=== PATIENT | female | born 1965 | race Caucasian/White ===

== ENCOUNTER 2022-05-06 20:36 | Emergency (ER) | payer SELFPAY ==
[~2022-05-06] VITALS: Ht 152.4 cm; Wt 61.2 kg
[2022-05-06 20:37] VITALS: BP_SYST 134
--- NOTE | 2022-05-06 20:45 | NUR ---
Patient triaged and placed in waiting room. VSS and patient appears in no acute distress at this time. Accompanied by SELF, awaiting available bed, and MD notified of need for MSE.
--- NOTE | 2022-05-06 21:00 | NUR ---
PT STATES UPPER ARMS AND UPPER BACK PAIN, DENIES ANY TRAUMA OR INJURY. PT HAS FULL ROM OF BOTH ARMS. DENIES ANY PAIN WITH AMBULATION
--- NOTE | 2022-05-07 02:33 | NUR ---
BROUGHT BACK TO BED #2 AND REPORT GIVEN TO SHAWNA
[2022-05-07 02:38] VITALS: BP_SYST 125
--- NOTE | 2022-05-07 03:00 | NUR ---
PATIENT BROUGHT COMPLAINING OF MID UPPER BACK AND CHEST PAIN RADIATING TO BOTH ARMS CONSTANT. PAIN 4/10
--- NOTE | 2022-05-07 03:12 | NUR ---
CLARA MEDINA at bedside examining patient.
[2022-05-07] MEDS ORDERED: MORPHINE 2 MG/ML INJ. SYRINGE IVP ONE (03:15)
--- NOTE | 2022-05-07 03:34 | NUR ---
# 20 gauge angiocath placed to LAC. Use of asceptic technique. Opsite placed over site. Blood return noted. Blood for lab drawn from site. Flushed with 10 cc of normal saline. No evidence of infiltration noted. Patient tolerated well.
[2022-05-07 04:03] LABS: BASOPHILS # (AUTO) 0.1 K/uL (0.0-0.2); BASOPHILS % (AUTO) 0.8 % (0.0-2.0); EOSINOPHILS # (AUTO) 0.4 K/uL (0.0-0.4); EOSINOPHILS % (AUTO) 2.3 % (0.0-4.0); HEMATOCRIT 30.7 % (36-48); HEMOGLOBIN 10.2 g/dL (12.0-16.0); LYMPHOCYTES % (AUTO) 12.8 % (20.5-51.5); MEAN CORPUSCULAR HEMOGLOBIN 26 pg (27-31); MEAN CORPUSCULAR HGB CONC 33 % (32-36); MEAN CORPUSCULAR VOLUME 78 fL (79.0-98.0); MONOCYTES # (AUTO) 0.6 K/uL (0.0-1.0); NEUTROPHILS # (AUTO) 12.6 K/uL (1.8-7.7); NEUTROPHILS % (AUTO) 80.1 % (40.0-70.0); PLATELET COUNT (AUTO) 257 K/uL (130-430); RED BLOOD CELL COUNT(AUTO) 3.96 MIL/uL (4.2-6.2); RED CELL DISTRIBUTION WIDTH 15.7 % (9.0-15.0); WHITE BLOOD COUNT (AUTO) 15.7 K/uL (4.8-10.8)
[2022-05-07 04:06] LABS: ANION GAP 8 (5-15); CALCIUM 8.8 mg/dL (8.4-11.0); CHLORIDE 101 mmol/L (98-107); CREATININE 0.82 mg/dL (0.55-1.30); GLUCOSE 132 mg/dL (70-99); UREA NITROGEN, BLOOD 21 mg/dL (8-21)
[2022-05-07 04:15] LABS: ALANINE AMINOTRANSFERASE 27 U/L (12-78); ALBUMIN 3.2 g/dL (3.4-4.8); ASPARTATE AMINOTRANSFERASE 20 U/L (10-37); TOTAL BILIRUBIN 0.5 mg/dL (0.0-1.0)
[2022-05-07 04:26] LABS: GFR AFRICAN AMERICAN 93 mL/min (>90)
--- NOTE | 2022-05-07 05:18 | NUR ---
Patient does not wish to proceed with medical care recommended by DR. MEDINA. Patient given information related to possible complications, up to and including , which could occur as a result of leaving hospital at this time. Patient verbalizes understanding of risks involved leaving against medical advice. Patient has signed AMA form. IV catheter removed intact and dressing applied, no active bleeding.
[2022-05-07] MEDS ORDERED: KETOROLAC TROMETHAMINE 30 MG VIAL IVP ONE (05:30)
== END 2022-05-07 05:18 | disposition left against medical advice (07) ==
LOC: SED 20:36
DX: M54.6 Pain in thoracic spine (principal); R07.9 Chest pain, unspecified; R70.0 Elevated erythrocyte sedimentation rate; I10 Essential (primary) hypertension; Z79.899 Other long term (current) drug therapy
CPT/HCPCS: 99285; 80053; 83880; 85025; 85651; 84484; 36415; 96374; 71045; 93005; 72072; J2270